=== PATIENT | female | born 1990 | race Caucasian/White ===

== ENCOUNTER 2018-08-16 13:24 | Emergency (ER) | payer OTHER ==
[2018-08-16] MEDS: IBUPROFEN 600 MG TAB PO (15:03)
== END 2018-08-16 16:43 | disposition home or self-care (01) ==
LOC: FTE 13:24
DX: M54.9 Dorsalgia, unspecified (principal); M25.571 Pain in right ankle and joints of right foot; R40.2412 Glasgow coma scale score 13-15, at arrival to emergency department
CPT/HCPCS: 72072; 72100; 81025; 99283-25